=== PATIENT | female | born 1980 | race Caucasian/White ===

== ENCOUNTER 2016-05-13 10:42 | Day surgery (SDC) | payer MEDICAID ==
[2016-05-13] VITALS (18 sets, daily range): BP systolic 104–129; BP diastolic 58–74; PULSE 60–91; RESP 11–20; Ht 162.6 cm; Wt 64.0 kg
[~2016-05-13] VITALS: Ht 162.6 cm; Wt 64.0 kg
[~2016-05-13 10:42] MED LIST: CEFAZOLIN 2 GM/50 ML (PMX) 50 ML IVPB SCH; DIPHENHYDRAMINE 50 MG INJ IV PRN; FENTAnyl 50 MCG/ML VIAL IV PRN; HYDROmorphONE (0.2 MG/ML) 10ML SYG IV PRN; KETOROLAC 30 MG INJ IV ONE; MEPERIDINE 25 MG INJ IV PRN; METOCLOPRAMIDE 10 MG INJ IV PRN; ONDANSETRON 4 MG INJ IV PRN; OXYCODONE/ACETAMINOPHEN (5/325) TAB PO PRN; PROCHLORPERAZINE 10 MG INJ IV PRN; SOD CHLORIDE 0.9% 1,000 ML IV SCH
[2016-05-13 12:22] LABS: ADD SCAN DIFF NO
[2016-05-13 12:32] LABS: INR 1.03; PROTIME 13.5 Sec (12.2-14.2); PT RATIO 1.1
[2016-05-13 12:33] LABS: PARTIAL THROMBOPLASTIN TIME 28.7 Sec (25.0-35.0)
[2016-05-13 12:36] LABS: BASOPHILS % 0.4 % (0.0-2.0); EOSINOPHILS # 0.1 10^3/ul (0.0-0.5); EOSINOPHILS % 1.4 % (0.0-7.0); HEMATOCRIT 40.2 % (37.0-47.0); HEMOGLOBIN 13.3 g/dl (12.0-16.0); LYMPHOCYTES # 2.5 10^3/ul (0.8-2.9); LYMPHOCYTES % 44.5 % (15.0-51.0); MEAN CORPUSCULAR HEMOGLOBIN 29.4 pg (29.0-33.0); MEAN CORPUSCULAR HGB CONC 33.1 g/dl (32.0-37.0); MEAN CORPUSCULAR VOLUME 88.9 fl (82.0-101.0); MEAN PLATELET VOLUME 10.7 fl (7.4-10.4); MONOCYTE # 0.3 10^3/ul (0.3-0.9); MONOCYTES % 5.9 % (0.0-11.0); NEUTROPHIL # 2.7 10^3/ul (1.6-7.5); NEUTROPHILS % 47.4 % (39.0-77.0); PLATELET COUNT 258 10^3/UL (140-415); RED BLOOD COUNT 4.52 10^6/ul (4.20-5.40); RED CELL DISTRIBUTION WIDTH 11.9 % (11.5-14.5); WHITE BLOOD COUNT 5.6 10^3/ul (4.8-10.8)
[2016-05-13 12:41] LABS: POTASSIUM 3.9 mmol/L (3.5-5.1)
[2016-05-13 13:17] LABS: CALCIUM 9.3 mg/dl (8.4-10.2); CREATININE 0.64 mg/dl (0.44-1.00)
[2016-05-13] MEDS ORDERED: ISOSULFAN BLUE 1% 5 ML INJ SC ONE ×2 (13:33→13:45)
[2016-05-13] MEDS ORDERED: MIDAZOLAM 1 MG/ML 2 ML INJ ONE (13:49)
[2016-05-13] MEDS ORDERED: LIDOCAINE 2% (SDV) 5 ML INJ ONE (13:49)
[2016-05-13] MEDS ORDERED: FENTAnyl 50 MCG/ML VIAL ONE ×2 (13:49→14:41)
[2016-05-13] MEDS ORDERED: PROPOFOL 20 ML ONE (13:49)
[2016-05-13] MEDS ORDERED: CEFAZOLIN 1 GM INJ ONE (13:50)
[2016-05-13] MEDS ORDERED: ONDANSETRON 4 MG INJ ONE (14:09)
[2016-05-13] MEDS ORDERED: DEXAMETHASONE 4 MG/ML 1 ML INJ ONE (14:09)
[2016-05-13] MEDS ORDERED: EPHEDrine SULFATE 50 MG/5 ML SYG ONE (14:35)
[2016-05-13] MEDS ORDERED: KETOROLAC 30 MG INJ ONE (14:41)
[2016-05-13] MEDS ORDERED: ONDANSETRON 4 MG INJ IV PRN (15:00)
[2016-05-13] MEDS ORDERED: morphine 2 MG INJ IV PRN (15:00)
[2016-05-13] MEDS ORDERED: ACETAMINOPHEN 1000MG/100ML IV 100 ML IVPB PRN (15:00)
--- NOTE | 2016-05-13 15:27 | OPR ---
DATE OF OPERATION: 05/13/2016 PREOPERATIVE DIAGNOSIS: Invasive cancer, right breast. POSTOPERATIVE DIAGNOSIS: Invasive cancer, right breast. OPERATION PERFORMED: Right partial mastectomy and axillary dissection utilizing sentinel lymph node technique. ANESTHESIA: General. ANESTHESIOLOGIST: Dorys Sharma MD SURGEON: Tavnir Hilario MD ANIMAL STUNNER: Dr. Story and Dr. Badillo. INDICATIONS FOR PROCEDURE: The patient is a very unfortunate 35-year-old female who presented with a right breast mass. Workup including biopsy revealed an invasive cancer at least 2.5 cm in diamete r. The patient was found to be HER2-negative. Thus, decision was made to proceed directly with martinez gical treatment. She was counseled as to the risks versus benefits of partial mastectomy and axilla ry dissection utilizing sentinel lymph node technique. She consented and was scheduled for surgery. DESCRIPTION OF PROCEDURE: The patient was brought to the operating theater, placed under general en dotracheal tube anesthesia. The right breast and axillary region was prepped and draped in the usua l sterile fashion. Approximately 4 mL of 1% Lymphazurin blue dye were then injected peritumorally a nd the breast was gently massaged for 12 minutes. At this point, a 3 cm incision was made in the [facility] axillary hairline. Subcutaneous tissue was dissected with cautery down through the clavipectora l fascia. An afferent lymphatic was identified and traced to an obvious sentinel node. This node a nd some additional enlarged lymph nodes appeared somewhat suspicious. Therefore, blunt dissection a long the chest wall allowed for identification of the long thoracic nerve and more superiorly the ax illary vein and thoracodorsal neurovascular bundle were identified and kept out of harm's way. The sentinel node and these additional level 1 nodes were meticulously resected and sent for intraoperat mary grace analysis. There was no definite evidence of metastatic disease on cytology. Therefore, the wou nd was irrigated. Minimal bleeding was controlled with cautery. A #10 flat Chuy-Toledo drain was brought through the right mid axillary line, cut to size, laid within the axilla. It was secured i n place in the standard fashion with 2-0 nylon suture, and the skin incision was then closed with 4- 0 Vicryl suture in subcuticular fashion. Attention was then directed to performing the partial mastectomy. The palpable tumor was at approxi mately the 11 o'clock location. A periareolar incision was demarcated with marking pen from approxi mately the 8 o'clock to the 1 o'clock locations. It was carried out with 15 blade scalpel. Subcuta neous tissue was dissected with cautery. Skin hooks were then used to elevate the skin edges and wi de circumferential dissection of the tumor associated with the palpable mass then took place, taking great care to ensure adequate margin. Specimen was elevated, transected, oriented, and sent for pe rmanent pathologic analysis. The wound was irrigated. Minimal bleeding was controlled with cautery , and the skin was then reapproximated with a deep dermal layer of 4-0 Vicryl sutures in interrupted fashion, followed by final skin approximation with 5-0 PDS suture in subcuticular fashion. Benzoin and Steri-Strips were then applied. The patient tolerated the procedure well. The estimated blood loss was 50 mL. There were no complications and the patient was transported in stable condition to the recovery room where circumferential compression dressing was applied. Dictated By: TANVIR HILARIO MD TL/NTS Conf#: [id number] DID#: [id number] CC: YAMEL STORY MD; DARY BADILLO MD;*EndCC*
[2016-05-13] MEDS: D5W-0.45 NACL + KCL 20 MEQ 1,000 ML IV SCH ×2 (18:07→23:51)
--- NOTE | 2016-05-13 19:38 | HP ---
DATE OF ADMISSION: 05/13/2016 CHIEF COMPLAINT AND HISTORY OF PRESENT ILLNESS: The patient is a 35-year-old female who presented to Dr. Hilario' office with a 2.5 cm right breast mass which was subsequently biopsied and was diagnos ed with right breast cancer. The patient was diagnosed with invasive ductal carcinoma. The patient had significant postoperative pain, therefore, the patient is being admitted for further evaluation and management. The patient denied any history of headache, dizziness, syncope. No history of fev er or chills. No history of abdominal pain, no history of vomiting or diarrhea. No history of dysu anna or hematuria. No history of abdominal distention. REVIEW OF SYSTEMS: Other than postoperative pain, the rest of THE review of systems were unremarkab le. Last menstrual period couple of weeks ago. ALLERGIES: NONE. MEDICATIONS PRIOR TO ADMISSION: None. FAMILY HISTORY: Negative for breast cancer, but patient did report that a couple of aunts had lung cancer. PHYSICAL EXAMINATION: GENERAL: The patient is conscious, awake, alert, fairly oriented. VITAL SIGNS: Temperature 97.3, pulse 80, respirations 20, blood pressure 112/72, O2 saturation 98% on room air. HEENT: Conjunctivae and lids normal. Oropharynx clear. NECK: Supple. No mass, no thyromegaly. CHEST: Fairly clear. No use of accessory muscles. CARDIOVASCULAR: Regular rate and rhythm. S1, S2 normal. No murmur. ABDOMEN: Soft, nondistended, nontender. No palpable mass. EXTREMITIES: No leg edema. NEUROLOGIC: The patient is awake, alert, fairly oriented with no gross focal deficit. LABORATORY DATA: Done this morning, WBC 5.6, hemoglobin 13.3, platelets 258. Sodium 144, potassium 3.9, BUN 12, creatinine 0.6, glucose 84, calcium 9.3. IMPRESSION: Right breast invasive cancer, status post right partial mastectomy and axillary dissect ion. PLAN: Patient admitted on medical floor. Patient was started on clear liquid diet, which will be a dvanced as tolerated. Patient will be given IV fluid, and will also be given IV Tylenol, Percocet, and IV morphine for pain control, depending upon severity. We will use SCDs for DVT prophylaxis. I f the patient continues to do well, she will be discharged home tomorrow. Dictated By: ELDER CASTAÑEDA/ANGELO Conf#: [id number] [facility]#: [id number]
[2016-05-14 04:10] VITALS: BP 106/60; PULSE 92; RESP 16
[2016-05-14 08:20] VITALS: BP 102/66; RESP 16
[2016-05-14] MEDS: D5W-0.45 NACL + KCL 20 MEQ 1,000 ML IV SCH (08:23)
--- NOTE | 2016-05-14 14:48 | DS ---
Date/Time of Note Date/Time of Note DATE: 05/14/16 TIME: 14:48 Discharge Summary Admission/Discharge Info Admit Date/Time Discharge Date/Time Patient Condition: Stable Home Meds No Active Prescriptions or Reported Meds ALEX SHERWOOD May 14, 2016 14:48
--- NOTE | 2016-05-14 14:50 | PDOCDIS ---
Discharge Instructions CONDITION Patient Condition: Stable HOME CARE INSTRUCTIONS: Diet Instructions: RegularSpecial Diet: REGULAR ACTIVITY: Activity Restrictions: Slowly Increase Activity Rest between Activity Avoid heavy lifting Avoid Heavy Housework Activity Restrictions Comment: Avoid getting surgical incision wet FOLLOW UP/APPOINTMENTS Appointments FU with primary MD X 1 WEEK FU with surgeon as recommended. Call 911 or go to the nearest hospital if symptoms worsen- patient verbalized understanding discharge instructions ALEX SHERWOOD May 14, 2016 14:50
[2016-05-14] MEDS ORDERED: HYDR-906 PO (14:57)
[2016-05-14] MEDS ORDERED: PANT40TA3 PO (14:57)
[2016-05-14] MEDS ORDERED: DOCU-144 PO (14:57)
--- NOTE | 2016-05-14 15:02 | PN ---
DATE: 05/14/2016 Postop day #1 status post right breast partial mastectomy with axillary dissection. SUBJECTIVE: No complaint. OBJECTIVE VITAL SIGNS: Stable, 98 temperature, 76 heart rate, 16 respirations, blood pressure 102/66, satura tion 98% on room air. Chuy-Toledo is draining serosanguineous fluid. ABDOMEN: Soft. Tolerated diet. ASSESSMENT: Postop day #1. The patient is stable. No bleeding. The patient can be discharged home today if okay with the medical service. Follow with Dr. Hilario. Nurses are going to teach the patient to take care of the Chuy-T[place] drain because the patient i s going home with Chuy-Toledo drain. Patient to call Dr. Hilario' office and make an appointment fo r followup. Dictated By: YAMEL STORY MD PS/NTS Conf#: [id number] DID#: [id number]
== END 2016-05-14 15:15 | disposition home or self-care (01) ==
LOC: SDS 10:42 → MS1 16:45 → SDS 05-14 15:15
PROVIDERS: ATTEND Surgery Surgical Oncology
DX: D05.11 Intraductal carcinoma in situ of right breast (principal); C77.3 Secondary and unspecified malignant neoplasm of axilla and upper limb lymph nodes
CPT/HCPCS: 19301; 38500; 38792; 80048; 84703; 85025; 85610; 85730; 88307; 88331; J0131; J0690; J1100; J1885; J2250; J2405; J3010; J3480; Z7512; Z7610; 88342; Q9968